=== PATIENT | male | born 1950 | race Asian ===

== ENCOUNTER 2024-03-12 06:37 | Day surgery (SDC) | payer MEDICARE, SELFPAY ==
[2024-03-12] VITALS (9 sets, daily range): BP systolic 130–165; BP diastolic 67–84; BMI 28.5
--- NOTE | 2024-03-12 10:50 | HP.FOC2 ---
Focused History & Physical
Chief Complaint
HPI:
Chief Complaint: Left inguinal hernia
HPI / Indication for Planned Procedure: Patient is a 73-year-old male recently seen in outpatient surgical evaluation secondary to a history of a longstanding left inguinal hernia that he had been following expectantly. The hernia has slowly
increased in size over the years and he now has more of an awareness of the hernia being present as well as occasional ache and discomfort.
Relevant Past Medical History: Hypertension
Relevant Social History: Negative
Relevant Family History: Negative
Relevant Past Surgical History: Negative
Review of Systems
Review of Pertinent Systems: All Systems Negative
Medication
See Medication form for detailed medications: Yes
Medication List (including Herbals & OTC):
Vitamin C 1 dose PO DAILY 03/08/24
atenolol 50 mg tablet 50 mg PO DAILY 03/08/24
coenzyme Q10 100 mg capsule (Co Q-10) 100 mg PO DAILY 03/08/24
multivitamin 1 tab PO DAILY 03/08/24
vitamin B complex 1 dose PO DAILY 03/08/24
zinc 1 dose PO DAILY 03/08/24
Medications Reviewed: Yes
Allergies and Reactions
Patient has Allergies: No
Noted Allergies and Reactions:
Allergy/AdvReac Type Severity Reaction Status Date / Time
No Known Allergies Allergy Unverified 03/08/24 11:20
Pertinent Physical Exam
All Other Systems: Negative
Head/Neck: Normal
Lungs: Normal
Heart: Normal
Abdomen: Other (Reducible left inguinal hernia)
Extremities: Normal
Neurological: Normal
Diagnosis / Assessment
73-year-old male presenting for scheduled operative correction symptomatic left inguinal hernia
Plan / Procedure
Robotic assisted laparoscopic repair left inguinal hernia with mesh
Anesthesia/Sedation to be done by Anesthesia Provider: Yes
--- NOTE | 2024-03-12 10:53 | W.SUR.PREOP ---
Pre-Operative Surgical Note
-
I have examined this patient prior to the performance of the scheduled procedure.
The patient's condition is unchanged from the time of the current History and
Physical and the patient is able to undergo the scheduled procedure.
[2024-03-12] MEDS: NORMOSOL-R/PLASMALYTE-A 1000 IV (11:22)
[2024-03-12] MEDS: TYLENOL 1000 MG PO (11:22)
--- NOTE | 2024-03-12 14:10 | W.IMMPOSTOP ---
Addendum entered and electronically signed by Gian Umana MD 03/12/24 14:23:
#[id number]
Original Note:
Surgical Immed Post Op Note
-
Primary Surgeon: Lyndsay
Assisting Surgeon: Karol Benjamin PA-c
Pre-op Diagnosis: LIH
Post-op Diagnosis: LIH - direct
Procedure Performed: Robotic assisted laparoscopic CHANTE repair left inguinal hernia with mesh; 3D max extra-large mid weight
Anesthesia Type: GETA +0.25% Marcaine
Specimen / Cultures: None
Estimated Blood Loss: 8 mL
Complications: None immediate
Operative Findings: Large left direct inguinal hernia. CHANTE repair. Plication of pseudosac with 2-0 PDS strata fix. 3D max extra-large mid weight mesh repair secured with 2-0 Vicryl. No lipoma of cord. No additional incidental findings.
The assistance of Karol Benjamin PA-C was required due to the complexity of the procedure. During the procedure Karol Benjamin PA-C assisted with port placement, robotic instrumentation and suture material exchanges, and closure of the surgical incision
sites. I was present for the entirety of the operative procedure.
== END 2024-03-12 16:17 | disposition home or self-care (01) ==
LOC: SDS 06:37
PROVIDERS: ATTENDING PHYSICIAN Surgery
PROC: 0YU64JZ Supplement Left Inguinal Region with Synthetic Substitute, Percutaneous Endoscopic Approach (ICD-10-PCS; 2024-03-12)
PROC: 8E0W4CZ Robotic Assisted Procedure of Trunk Region, Percutaneous Endoscopic Approach (ICD-10-PCS; 2024-03-12)
DX: K40.90 Unilateral inguinal hernia, without obstruction or gangrene, not specified as recurrent (principal)
CPT/HCPCS: 49650; C1781